=== PATIENT | female | born 1940 | race Caucasian/White ===

== ENCOUNTER 2018-10-05 19:47 | Emergency (ER) | payer OTHER ==
[~2018-10-05] VITALS: Ht 157.5 cm; Wt 68.0 kg
[~2018-10-05 19:47] MED LIST: ASPI-1079; LEVO25TA73; LOVA20TA2
[2018-10-05] MEDS ORDERED: ASPIRIN 81MG TABLET PO ONE (20:30)
[2018-10-05 20:36] LABS: BASOPHILS % 0.7 % (0.0-2.0); EOSINOPHILS % 3.3 % (0.0-5.0); HEMATOCRIT. 40.8 % (36.0-48.0); HEMOGLOBIN. 13.6 g/dL (12.0-16.0); LYMPHOCYTES % 28.5 % (20.0-50.0); MEAN CORPUSCULAR VOLUME 86.8 fL (81.0-99.0); MEAN PLATELET VOLUME 9.2 fl (7.4-10.4); MONOCYTES % 6.2 % (2.0-8.0); NEUTROPHILS % 61.3 % (40.0-76.0); PLATELET 202 x1000/uL (130-400)
[2018-10-05 20:40] LABS: CHLORIDE 110 mEq/L (98-107)
[2018-10-05] MEDS ORDERED: NITROGLYCERIN 0.4MG TABLET SL SL ONE (21:15)
[2018-10-05] MEDS ORDERED: KETOROLAC 15MG/ML VIAL IV ONE (21:15)
[2018-10-06 00:47] VITALS: BP 135/65
== END 2018-10-06 00:57 | disposition short-term general hospital (02) ==
LOC: ER 19:47 → CANBEDREQ 10-06 02:20
DX: R07.89 Other chest pain (principal); I20.0 Unstable angina; I10 Essential (primary) hypertension; E78.00 Pure hypercholesterolemia, unspecified; E03.9 Hypothyroidism, unspecified; Z79.82 Long term (current) use of aspirin
CPT/HCPCS: 36415; 71045; 80053; 83880; 84484; 85025; 93005; 96374; 99285; J1885